=== PATIENT | female | born 1985 | race Caucasian/White ===

== ENCOUNTER 2024-03-27 20:33 | Emergency (ER) | payer BC, SELFPAY ==
[2024-03-27 20:33] VITALS: BMI 21.7
[2024-03-27 21:46] VITALS: BP 119/85; PULSE 72; RESP 18; TEMP 36.9; O2SAT 98
--- NOTE | 2024-03-27 21:51 | XR_ITS ---
Examination: CT cervical spine without contrast 2-D sagittal reconstructions 2-D coronal reconstructions 3-D reconstructions. Exam date and time:March 27, 2024 1003 hrs. Indications: Patient slipped and fell 2 days ago with injury to the neck, neck pain CTDI:vol (mGy) 11.96 DLP: (mGycm) 260 Technique: Multiple 2 mm axial sections of the cervical spine have been obtained. The coronal and sagittal reconstructions have been obtained. 3-D reconstructions have been obtained. Low dose protocols were performed. One or more of the following dose reduction techniques were used; automated exposure control, adjustment of the mA and/or KV according to patient size, use of iterative reconstruction technique. Findings: Axial sections demonstrate intact base of the skull. C1 exhibit satisfactory relationship to the odontoid. No acute cervical vertebral body fracture seen. Alignment posterior spinous processes satisfactory. Impression: No acute cervical fracture.
--- NOTE | 2024-03-27 21:51 | XR_ITS ---
Examination: CT brain head without contrast. 2-D sagittal coronal reconstructions Date and time of exam:March 27, 2024 at 01 hours Indications: Patient slipped and fell 2 days ago with injury to head, head pain CTDI: vol (mGy):50 DLP: (mGycm):1016 Technique: Multiple CT axial sections of the brain have been obtained, 5 mm slice thickness. Contrast has not been administered. 2-D sagittal, coronal reconstructions have been obtained Low dose protocols were performed. One or more of the following dose reduction techniques were used; automated exposure control, adjustment of the mA and/or KV according to patient size, use of iterative reconstruction technique. Findings: No significant ventricular enlargement. Intra-axial or extra-axial hemorrhage density is not seen. No mass effect or midline shift Basal cisterns are not remarkable. Fourth ventricle is midline. Cranial vault intact. Impression: Negative for acute hemorrhage, mass effect or midline shift
--- NOTE | 2024-03-27 21:52 | PD.EDRME ---
Rapid Medical Screening Exam RME Arrival date/time: 03/27/24 20:33 39-year-old female presents emergency department complaining of head and neck pain after sustaining ground-level fall this past Tuesday. Patient reports no LOC but reports headache has been worsening. Chief Complaint: Fall Time Seen by Provider: 03/27/24 21:00 Vital signs: Vital Signs Temperature 98.4 F 03/27/24 21:46 Pulse Rate 72 03/27/24 21:46 Respiratory Rate 18 03/27/24 21:46 Blood Pressure 119/85 H 03/27/24 21:46 Pulse Oximetry (%) 98 03/27/24 21:46 Oxygen Delivery Method Room Air 03/27/24 21:46 Vital signs reviewed by provider: Yes
[2024-03-27] MEDS: ACETAMINOPHEN 500 MG TABLET 1000 MG PO (22:18)
--- NOTE | 2024-03-27 23:02 | PD.EDFALL ---
ED Fall Injury RME/HPI General Chief Complaint: Fall Stated Complaint: HEADACHE AFTER FALL Time Seen by Provider: 03/27/24 21:00 Source: patient Arrival date/time: 03/27/24 20:33 39-year-old female presents emergency department complaining of head and neck pain after sustaining ground-level fall this past Tuesday. Patient reports no LOC but reports headache has been worsening. Patient denies any fever, chills, dizziness, vision changes, focal weakness, or any other associated symptom. Mode of arrival: ambulatory Limitations: no limitations RME / HPI RME / HPI Narrative: 03/27/24 20:33 39-year-old female presents emergency department complaining of head and neck pain after sustaining ground-level fall this past Tuesday. Patient reports no LOC but reports headache has been worsening. Related Data Previous Rx's ?Medication ?Instructions ?Recorded acetaminophen 500 mg capsule 500 mg PO Q6H PRN pain #30 caps 03/27/24 Allergies Allergy/AdvReac Type Severity Reaction Status Date / Time No Known Allergies Allergy Verified 03/27/24 20:36 Review of Systems Review of Systems Systems Reviewed: All systems reviewed, normal except as documented Constitutional Constitutional: Reports system reviewed and no additional complaints, except as documented, Denies body ache(s), Denies chills, Denies fever(s) and Reports headache(s) Eyes Eyes: Reports system reviewed and no additional complaints, except as documented and Denies change in vision ENT Ears, Nose, Mouth, and Throat: Reports system reviewed and no additional complaints, except as documented, Denies disequilibrium, Denies dizziness, Reports headache(s), Reports neck pain, Denies sore throat and Denies vertigo Cardiovascular Cardiovascular: Reports system reviewed and no additional complaints, except as documented, Denies chest pain and Denies dyspnea Respiratory Respiratory: Reports system reviewed and no additional complaints, except as documented, Denies chest congestion, Denies cough and Denies dyspnea Gastrointestinal Gastrointestinal: Reports system reviewed and no additional complaints, except as documented, Denies abdominal pain, Denies nausea and Denies vomiting Musculoskeletal Musculoskeletal: Reports system reviewed and no additional complaints, except as documented, Denies abnormal gait, Denies arthralgias and Reports neck pain Integumentary/Breasts Skin/Breast: Reports system reviewed and no additional complaints, except as documented, Denies erythema, Denies rash and Denies wounds Neurologic Neurologic: Reports system reviewed and no additional complaints, except as documented, Denies abnormal gait, Denies disequilibrium, Denies dizziness, Reports headache(s) and Denies vertigo Past Medical History Social History SMOKING STATUS: Never smoker ED Exam General Limitations: Present no limitations General appearance: Present alert and in no apparent distress Head Head exam: Present atraumatic Eye Eye exam: Present normal appearance, PERRL and EOMI ENT ENT exam: Present normal exam, normal oropharynx and mucous membranes moist Neck Neck exam: Present normal inspection, full ROM and trachea midline Chest Chest inspection: Present normal inspection and symmetric chest wall rise Respiratory Respiratory exam: Present normal lung sounds bilaterally Cardiovascular Cardiovascular exam: Present regular rate, normal rhythm and normal heart sounds Abdominal Exam Abdominal exam: Present soft and normal bowel sounds Extremities Exam Extremities exam: Present normal inspection and full ROM Back Exam Back exam: Present normal inspection and full ROM Neurological Exam Neurological exam: Present alert, oriented X3 and CN II-XII intact Psychiatric Psychiatric exam: Present normal affect and normal mood Skin Skin exam: Present warm, dry, intact and normal color Course Quality Measures none Orders Category Date Time Status CT cervical spine wo con Stat Exams 03/27/24 21:[address] head/brain wo con Stat Exams 03/27/24 21:51 Completed Acetaminophen Tab [Tylenol ES Tab] Med 03/27/24 22:11 Discontinued 1,000 mg PO X1 ONE Ketorolac Inj [Toradol Inj] Med 03/27/24 23:03 Discontinued 30 mg IM X1 ONE Vital Signs Vital signs: Vital Signs Temperature 98.4 F 03/27/24 21:46 Pulse Rate 72 03/27/24 21:46 Respiratory Rate 18 03/27/24 21:46 Blood Pressure 119/85 H 03/27/24 21:46 Pulse Oximetry (%) 98 03/27/24 21:46 Oxygen Delivery Method Room Air 03/27/24 21:46 98% room air within normal limits Fall MDM Narrative MDM Narrative:: 39-year-old female presents emergency department complaining of head and neck pain after sustaining ground-level fall this past Tuesday. Patient reports no LOC but reports headache has been worsening. Patient denies any fever, chills, dizziness, vision changes, focal weakness, or any other associated symptom. CT scan cervical and head were unremarkable. Neck supple with full active range of motion. Patient GCS of 15 with steady gait. Patient stable for discharge. Patient data External records reviewed:: None Clinical information provided by:: patient Social determinants that could affect healthcare access:: none Patient has the following chronic illnesses:: None How is presenting disease/condition affected by chronic disease/condition?: no chronic disease Evaluation data The following diagnostics were reviewed and interpreted by me:: radiology exam(s) Lab and/or radiology exams considered but not ordered:: Ordered Interpretation Summary: Interpreted by me Medications / Prescriptions Medications or Prescriptions considered but not ordered:: Ordered Medication administrations:: Medication Administration History Discontinued Medications Acetaminophen (Acetaminophen 500 Mg Tablet) 1,000 mg PO X1 ONE Stop: 03/27/24 22:12 Last Admin: 03/27/24 22:18 Dose: 1,000 mg Documented By: TARIQ Ketorolac Tromethamine (Ketorolac Inj 60 Mg/2 Ml Vial) 30 mg IM X1 ONE Stop: 03/27/24 23:04 Last Admin: 03/27/24 23:40 Dose: 30 mg Documented By: TARIQ Given Consultations Consultation(s) initiated? (list below): No Diagnosis Fall Differential Diagnosis: compression fracture, concussion with loss of consciousness and concussion without loss of consciousness Most likely diagnosis given after review of the tests above:: Closed head injury Admission Indicated Admission indicated?: not indicated Admission Request Was there a request for admission?: No Disposition Plan Disposition Plan: Discharge Discharge Attestation Discharge Attestation: The patient and all family members were given an opportunity to ask questions and understood the discharge instructions. Discharge instructions specifically effects, indications for sooner follow up or return to the emergency department, and the expected course of current diagnosis. Patient condition: Stable Discharge Plan Plan Patient Disposition: HOME (Self Care) Disposition Comment: Stable Prescriptions/Referrals Prescriptions/Med Rec: New acetaminophen 500 mg capsule 500 mg PO Q6H PRN (Reason: pain) Qty: 30 0RF Referrals: Charleen Jovel FNP [Primary Care Provider] - In 1 week Problem List Clinical Impression: Closed head injury Patient/Caregiver Discharge Instructions Discharge Activity: activity as tolerated Education Materials: ED Head Injury (Adult) Additional Instructions: Take Tylenol or ibuprofen as needed for pain. Follow-up with primary care provider in 2 to 3 days. Return to emergency department for any worsening symptoms or as needed. Print Language: Sinhala Stand Alone Forms: Mary Award Info., Patient Portal Info Letter PA/MOLD REPAIRER Supervising Physician PA/MOLD REPAIRER Supervising Physician: Dr. Artis
[2024-03-27] MEDS: KETOROLAC INJ 60 MG/2 ML VIAL 30 MG IM (23:40)
[2024-03-27 23:43] VITALS: BP 112/70; PULSE 76; RESP 18; TEMP 36.7; O2SAT 98
== END 2024-03-27 23:44 | disposition home or self-care (01) ==
PROVIDERS: Emergency Provider Emergency Medicine; PCP Nurse Practitioner
DX: S09.90XA Unspecified injury of head, initial encounter (principal); W18.30XA Fall on same level, unspecified, initial encounter; M54.2 Cervicalgia
CPT/HCPCS: 70450; 72125; 96372; 99284; J1885; A9270

== ENCOUNTER 2024-09-25 04:56 | Emergency (ER) | payer BC, SELFPAY ==
[2024-09-25 04:59] VITALS: BP 107/78; PULSE 107; RESP 20; TEMP 37.1; O2SAT 97; BMI 20.9
--- NOTE | 2024-09-25 05:29 | PD.EDRME ---
Rapid Medical Screening Exam RME Arrival date/time: 09/25/24 04:56 This is a case of 39-year-old female with no medical history came in in the emergency room due to abdominal pain on and off for 2 days associated with vomiting and diarrhea persistence of the symptoms this patient decided to start consult here in the emergency room Chief Complaint: Abdominal Pain Vital signs: Vital Signs Temperature 98.8 F 09/25/24 04:59 Pulse Rate 107 H 09/25/24 04:59 Respiratory Rate 20 09/25/24 04:59 Blood Pressure 107/78 09/25/24 04:59 Pulse Oximetry (%) 97 09/25/24 04:59 Oxygen Delivery Method Room Air 09/25/24 04:59
[2024-09-25] MEDS: ONDANSETRON ODT 4 MG TABRAP PO (06:14)
[2024-09-25] MEDS: DICYCLOMINE INJ 10 MG/ML 2ML AMP IM (06:15)
[2024-09-25 07:19] LABS: Basophils # (Auto) 0.0 Thou/mm3 (0.0-0.2); Basophils % (Auto) 0 % (0-2.5); Eosinophils # (Auto) 0.0 Thou/mm3 (0.0-0.5); Eosinophils % (Auto) 0 % (0-10); Hematocrit 38.0 % (36.0-46.0); Hemoglobin 13.7 g/dL (12.0-16.0); Immature Granulocytes Auto 0.02 Thou/mm3 (0.00-0.00); Lymphocytes # (Auto) 0.2 Thou/mm3 (1.0-4.8); Lymphocytes % (Auto) 3 % (10-50); Mean Corpuscular HGB Conc 36.1 g/dl (31.0-37.0); Mean Corpuscular Hemoglobin 34.6 pg (25.0-35.0); Mean Corpuscular Volume 96 fL (80-100); Monocytes # (Auto) 0.3 Thou/mm3 (0.0-0.8); Monocytes % (Auto) 5 % (0-12); Neutrophils # (Auto) 5.5 Thou/mm3 (1.8-7.7); Neutrophils % (Auto) 91 % (37-80); Nucleated Red Blood Cell # 0.00 Thou/mm3 (0.00-0.00); Nucleated Red Blood Cell % 0 /100 WBC (0); Platelet Count 209 Thou/mm3 (140-440); RDW Standard Deviation 39.8 fL (36.4-46.3); Red Blood Count 3.96 Miln/mm3 (4.00-5.20); White Blood Count 6.1 Thou/mm3 (3.6-11.0)
[2024-09-25 07:32] LABS: Alanine Aminotransferase 19 U/L (10-49); Albumin, Serum 4.3 gm/dL (3.5-5.0); Albumin/Globulin Ratio 1.9 (1.2-2.2); Alkaline Phosphatase 40 U/L (46-116); Anion Gap 9 (7-16); Aspartate Amino Transferase 22 U/L (0-34); BUN/Creatinine Ratio 26 Ratio (12-20); Bilirubin,Total 1.1 mg/dL (0.3-1.2); Blood Urea Nitrogen 21 mg/dL (9-23); Calcium 9.5 mg/dL (8.3-10.6); Calcium (Corrected) 9.5 mg/dL (8.5-10.1); Carbon Dioxide 26.2 mMol/L (20.0-31.0); Chloride 104 mMol/L (98-107); Creatinine (Component) 0.8 mg/dL (0.6-1.3); Estimated Creatinine Clearance 89.6 mL/min (>60); Globulin 2.3 gm/dL (2.3-3.5); Glucose 125 mg/dL (74-106); Lipase 26 U/L (12-53); Osmolality,Calculated 281 (275-295); Potassium 3.6 mMol/L (3.4-5.1); Sodium 139 mMol/L (136-145); Total Protein 6.6 gm/dL (5.7-8.2); eGFR > 60 See Note
--- NOTE | 2024-09-25 08:04 | PD.EDABDPN ---
ED Abdominal Pain RME/HPI General Chief Complaint: Abdominal Pain Stated complaint: NV ABD PAIN RUQ Time seen by provider: 09/25/24 06:45 Arrival date/time: 09/25/24 04:56 39-year-old female presents to the Emergency Department today for complaints of acute onset of diarrhea last night. Patient reports mild intermittent upper right-sided abdominal pain. Patient reports history of cholecystectomy Limitations: no limitations RME / HPI RME / HPI narrative: 09/25/24 04:56 This is a case of 39-year-old female with no medical history came in in the emergency room due to abdominal pain on and off for 2 days associated with vomiting and diarrhea persistence of the symptoms this patient decided to start consult here in the emergency room Related Data Previous Rx's ?Medication ?Instructions ?Recorded acetaminophen 500 mg capsule 500 mg PO Q6H PRN pain #30 caps 03/27/24 loperamide 2 mg capsule (Imodium 2 mg PO Q6H PRN loose stool #14 09/25/24 A-D) caps ondansetron 4 mg disintegrating 4 mg PO Q8H PRN nausea and 09/25/24 tablet vomiting #10 tabs Allergies Allergy/AdvReac Type Severity Reaction Status Date / Time morphine Allergy Verified 09/25/24 05:02 Review of Systems Review of Systems Systems Reviewed: All systems reviewed, normal except as documented Constitutional Constitutional: Reports system reviewed and no additional complaints, except as documented, Denies fever(s) and Denies headache(s) Eyes Eyes: Reports system reviewed and no additional complaints, except as documented and Denies blurry vision ENT Ears, Nose, Mouth, and Throat: Reports system reviewed and no additional complaints, except as documented, Denies headache(s), Denies nasal congestion and Denies nasal discharge Cardiovascular Cardiovascular: Reports system reviewed and no additional complaints, except as documented, Denies chest pain and Denies dyspnea Respiratory Respiratory: Reports system reviewed and no additional complaints, except as documented, Denies chest congestion, Denies cough and Denies dyspnea Gastrointestinal Gastrointestinal: Reports system reviewed and no additional complaints, except as documented, Denies abdominal pain, Reports loose stools and Denies vomiting Integumentary/Breasts Skin/Breast: Reports system reviewed and no additional complaints, except as documented and Denies rash Neurologic Neurologic: Reports system reviewed and no additional complaints, except as documented, Reports as per HPI and Denies headache(s) Past Medical History Social History SMOKING STATUS: Never smoker ED Exam General Limitations: Present no limitations General appearance: Present alert and in no apparent distress Head Head exam: Present atraumatic, normocephalic and normal inspection Eye Eye exam: Present normal appearance, PERRL and EOMI; Absent conjunctival injection ENT ENT exam: Present normal exam, normal oropharynx and mucous membranes moist Neck Neck exam: Present normal inspection, full ROM and trachea midline Chest Chest inspection: Present normal inspection and symmetric chest wall rise Respiratory Respiratory exam: Present normal lung sounds bilaterally; Absent respiratory distress Cardiovascular Cardiovascular exam: Present regular rate, normal rhythm and normal heart sounds Abdominal Exam Abdominal exam: Present soft and normal bowel sounds; Absent distention, tenderness, guarding, rebound, rigidity, Son's sign or tenderness at McBurney's Point Abdominal tenderness: Absent RUQ or RLQ Extremities Exam Extremities exam: Present normal inspection and full ROM Back Exam Back exam: Present normal inspection and full ROM Neurological Exam Neurological exam: Present alert, oriented X3 and CN II-XII intact Psychiatric Psychiatric exam: Present normal affect and normal mood Skin Skin exam: Present warm, dry, intact and normal color Course Quality Measures none Orders Category Date Time Status Bedside COVID-19 Antigen Test NOW Care 09/25/24 07:58 Active Bedside Influenza A&B Antigen Test NOW Care 09/25/24 07:58 Active CBC Stat Lab 09/25/24 07:01 Completed Comprehensive Metabolic Panel Stat Lab 09/25/24 07:01 Completed HCG Qualitative,Urine Stat Lab 09/25/24 05:29 Ordered HCG,Qualitative Serum Stat Lab 09/25/24 07:01 Completed Lipase Stat Lab 09/25/24 07:01 Completed Urinalysis Stat Lab 09/25/24 05:29 Ordered Dicyclomine Inj [Bentyl Inj] Med 09/25/24 05:30 Discontinued 10 mg IM X1 ONE Loperamide [Imodium] Med 09/25/24 08:02 Discontinued 4 mg PO X1 ONE Ondansetron Odt [Zofran Odt] Med 09/25/24 05:30 Discontinued 4 mg PO X1 ONE Sodium Chloride 0.9% 1000 ml [Ns] 1,000 ml Med 09/25/24 07:58 Discontinued IV 999 mls/hr Vital Signs Vital signs: Vital Signs Temperature 98.8 F 09/25/24 04:59 Pulse Rate 107 H 09/25/24 04:59 Respiratory Rate 20 09/25/24 04:59 Blood Pressure 107/78 09/25/24 04:59 Pulse Oximetry (%) 97 09/25/24 04:59 Oxygen Delivery Method Room Air 09/25/24 04:59 O2 saturation 97% on room air with normal limits Abdominal Pain MDM MDM Narrative MDM Narrative:: 39-year-old female presents to the Emergency Department today for complaints of acute onset of diarrhea last night. Patient reports mild intermittent upper right-sided abdominal pain. Patient reports history of cholecystectomy On exam patient well-appearing patient does not appear toxic no acute distress patient is soft nontender abdomen Lab work obtained no acute emergent findings noted Patient given IV fluids and medication here which improved her symptoms Explained to the patient should her symptoms persist or worsen she is instructed to return for evaluation Patient data External records reviewed:: [facility] previous records Clinical information provided by:: patient Social determinants that could affect healthcare access:: none Patient has the following chronic illnesses:: None How is presenting disease/condition affected by chronic disease/condition?: no chronic disease Evaluation data The following diagnostics were reviewed and interpreted by me:: lab results Lab and/or radiology exams considered but not ordered:: Labs obtained Interpretation Summary: Reviewed by me Medications / Prescriptions Medications or Prescriptions considered but not ordered:: Given Medication administrations:: Medication Administration History Discontinued Medications Dicyclomine HCl (Dicyclomine Inj 10 Mg/Ml 2ml Amp) 10 mg IM X1 ONE Stop: 09/25/24 05:31 Last Admin: 09/25/24 06:15 Dose: 10 mg Documented By: SAM Sodium Chloride (Ns) 1,000 mls @ 999 mls/hr IV .Q1H1M ONE Stop: 09/25/24 08:58 Last Admin: 09/25/24 08:17 Dose: 999 mls/hr Documented By: ED Loperamide HCl (Loperamide 2 Mg Capsule) 4 mg PO X1 ONE Stop: 09/25/24 08:03 Last Admin: 09/25/24 08:21 Dose: 4 mg Documented By: TROY Ondansetron HCl (Ondansetron Odt 4 Mg Tabrap) 4 mg PO X1 ONE; Protocol Stop: 09/25/24 05:31 Last Admin: 09/25/24 06:14 Dose: 4 mg Documented By: SAM Given Consultations Consultation(s) initiated? (list below): No Diagnosis Differential diagnosis abdominal pain: abdominal pain, acute appendicitis and pancreatitis Most likely diagnosis given after review of the tests above:: Abdominal pain, diarrhea, gastroenteritis Admission Indicated Admission indicated?: not indicated Admission Request Was there a request for admission?: No Disposition Plan Disposition Plan: Discharge Discharge Attestation Discharge Attestation: The patient and all family members were given an opportunity to ask questions and understood the discharge instructions. Discharge instructions specifically effects, indications for sooner follow up or return to the emergency department, and the expected course of current diagnosis. Patient condition: Stable Discharge Plan Plan Patient Disposition: HOME (Self Care) Discharge Disposition comment: Stable Prescriptions/Referrals Prescriptions/Med Rec: New loperamide [Imodium A-D] 2 mg capsule 2 mg PO Q6H PRN (Reason: loose stool) Qty: 14 0RF ondansetron 4 mg tablet,disintegrating 4 mg PO Q8H PRN (Reason: nausea and vomiting) Qty: 10 0RF No Action acetaminophen 500 mg capsule 500 mg PO Q6H PRN (Reason: pain) Qty: 30 0RF Referrals: Charleen Jovel FNP [Primary Care Provider] - In 1 week Problem List Clinical Impression: Abdominal pain, Diarrhea Patient/Caregiver Discharge Instructions Education Materials: Abdominal Pain Additional Instructions: Please follow up with your primary care doctor in the next 24-48hrs for any worsening symptoms return here immediately Print Language: Citizen Of [place] Stand Alone Forms: Mary Award Info., Patient Portal Info Letter LEXIE/REYNA Supervising Physician LEXIE/REYNA Supervising Physician: Dr. taylor
[2024-09-25] MEDS: SODIUM CHLORIDE 0.9% 1000 ML 1,000 ML 999 ML IV (08:17)
[2024-09-25] MEDS: LOPERAMIDE 2 MG CAPSULE 4 MG PO (08:21)
[2024-09-25 08:57] LABS: HCG,Qualitative Serum Negative
== END 2024-09-25 09:16 | disposition home or self-care (01) ==
PROVIDERS: Nurse Practitioner Family; Nurse Practitioner Primary Care; Emergency Provider Family Medicine; PCP Nurse Practitioner
DX: R19.7 Diarrhea, unspecified (principal); R10.11 Right upper quadrant pain
CPT/HCPCS: 36415; 80053; 81001; 81025; 83690; 84703; 85025; 96360; 96372; 99283; J0500; J7030; Q0162; A9270